=== PATIENT | male | born 1960 | race Caucasian/White ===

== ENCOUNTER 2024-04-09 01:18 | Emergency (ER) | payer BC, OTHER ==
[2024-04-09] MEDS: Proparacaine 0.5% Ophth Soln 15 ML Bottle EYEBOTH STA (01:49)
[2024-04-09] MEDS: Diphtheria,Pertussis(Acell),Tetanus Vaccine 0.5 ML Syringe IM ONE (02:09)
== END 2024-04-09 02:27 | disposition home or self-care (01) ==
LOC: JP.ED 01:18
DX: T15.92XA Foreign body on external eye, part unspecified, left eye, initial encounter (principal); Z23 Encounter for immunization; Z88.0 Allergy status to penicillin; Z88.8 Allergy status to other drugs, medicaments and biological substances; X58.XXXA Exposure to other specified factors, initial encounter
CPT/HCPCS: 65220; 90471; 90715; 99283; A9270